=== PATIENT | female | born 1960 | race Caucasian/White ===

== ENCOUNTER 2016-08-05 20:05 | Emergency (ER) | payer BC, OTHER ==
[2016-08-05] MEDS ORDERED: ACETAMINOPHEN 325 MG TAB ONE (20:11)
[2016-08-06] MEDS ORDERED: DUONEB INH ONE ×2 (01:56)
[2016-08-06] MEDS ORDERED: METHYLPRED SOD SUCC 125 MG/2 ML VIAL ONE (01:58)
[2016-08-06] MEDS ORDERED: CEFTRIAXONE 1 GM VIAL ONE (01:58)
[2016-08-06] MEDS ORDERED: ONDANSETRON 4 MG VIAL ONE (01:58)
[2016-08-06] MEDS ORDERED: GUAIFEN/DM 10 ML UDC ONE (01:59)
[2016-08-06] MEDS ORDERED: SODIUM CHLORIDE 0.9% 100 ML IV ONE (01:59)
[2016-08-06] MEDS ORDERED: MORPHINE 4 MG/ML SYR ONE (01:59)
[2016-08-06] MEDS ORDERED: SODIUM CHLORIDE 0.9% 1,000 ML ONE (03:40)
== END 2016-08-06 05:09 | disposition home or self-care (01) ==
LOC: ER 20:05
CPT/HCPCS: 71020 ×2; 93005 ×2; 94640 ×2; 96361 ×2; 96365 ×2; 96375 ×2; 99285; J0696; J2270; J2405; J2930; J7050